=== PATIENT | female | born 1960 | race African-American/Black ===

== ENCOUNTER 2019-10-12 05:51 | Inpatient (IN) | payer OTHER ==
[~2019-10-12 05:51] MED LIST: BUPIVICAINE 0.25%/MORPH PF/KETOROLAC - 51ML DISP.SYRINGE IA ONE; CEFAZOLIN 2 GM in DEXTROSE 5%-WATER - 50 ML IVPB ONE; PANTOPRAZOLE 40 MG TABLET PO ONE; TRANEXAMIC ACID 1000 MG/10 ML VIAL IVPUSH ONE
[2019-10-12] MEDS ORDERED: MIDAZOLAM HCL 2 MG/2 ML SINGLE DOSE VIAL ONE ×4 (06:59→11:08)
[2019-10-12] MEDS: CELECOXIB 200 MG CAPSULE PO ONE ×2 (07:15→10:00)
[2019-10-12] MEDS ORDERED: ceFAZolin SODIUM 1 GM VIAL ONE ×4 (07:21→14:08)
[2019-10-12] MEDS ORDERED: TRANEXAMIC ACID 1000 MG/10 ML VIAL ONE ×3 (07:21→09:18)
[2019-10-12] MEDS ORDERED: VANCOMYCIN 1,000 MG VIAL (RESTRICTED TO ID ONLY) ONE (07:21)
[2019-10-12] MEDS ORDERED: LIDOCAINE HCL/PF 2% SDV 5ML VIAL ONE ×3 (07:34→12:49)
[2019-10-12 07:35] VITALS: BMI 32.1
[2019-10-12] MEDS ORDERED: SUCCINYLCHOLINE CHLORIDE 200 MG/10 ML SYRINGE ONE (07:35)
[2019-10-12] MEDS ORDERED: PROPOFOL 20 ML ONE ×5 (07:35→11:09)
[2019-10-12] MEDS ORDERED: EPHEDRINE SULFATE/0.9% NACL/PF 50 MG/10 ML SYRINGE NR ONE (07:35)
--- NOTE | 2019-10-12 07:47 | HP ---
Admitting History and Physical - Admission Chief Complaint: Right hip osteoarthritis x years History of Present Illness: 59 year old female presents today in regard to their right hip. Longstanding history of right hip osteoarthritis. Patient complains of pain, limited ROM, difficulty ambulating and difficulty completing activities of daily living. Patient has failed conservative treatment options including PO medications, injections, exercise programs and activity modification. Diagnostic testing reveals severe osteoarthritis of the right hip joint. At this point, patient would like to proceed with surgical intervention; a right total hip arthroplasty, MAKOplasty. 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 Monse Grossman-->toxic multi nodular goiter proven on uptake scan following sono Depression - Dr. Ahmadi - monthly follow up echo 02/2014 - grade II diastolic dysfunction GERD since 2014 elevated alk phos up to 360 since 2008 Biopsy 2010 mild acute lobular and portal inflammation, very minimal steatosis - liver biopsy 2010 reactive mild inflammation, nl iron studies, hep panel, ceruloplasm, a1AT, KANDIS, ASMA, FARIDA, AMA 2008 2018 - fatty liver JAMES- wears CPAP - Past Surgical History Additional Past Surgical History: right robotic partial nephrectomy 03/2016 left shoulder surgery 2015 TRINITY w/o BSO 2003 - fibroids knee surgery for patellar fracture 2001 Cholecystectomy 1999 Breast R fibroadenoma 1977 - Smoking History Smoking history: Never smoked - Alcohol/Substance Use Hx Alcohol Use: No Home Medications - Allergies Allergies/Adverse Reactions: Allergies Allergy/AdvReac Type Severity Reaction Status Date / Time piroxicam [From Feldene] Allergy Severe Vomiting Verified 10/12/19 07:27 oxycodone [From OxyContin] AdvReac Severe Vomiting Verified 10/12/19 07:27 - Home Medications Home Medications: Ambulatory Orders Aripiprazole [Abilify] 10 mg PO DAILY 02/08/14 Bupropion HCl [Wellbutrin -] 150 mg PO DAILY 02/08/14 Methimazole 5 mg PO DAILY 10/07/19 Review of Systems - Review of Systems Musculoskeletal: reports: Decreased ROM (right hip), Joint Pain (right hip) Physical Examination Vital Signs: Vital Signs Temperature 98.4 F 10/12/19 07:28 Pulse Rate 99 H 10/12/19 07:28 Respiratory Rate 16 10/12/19 07:28 Blood Pressure 162/85 10/12/19 07:28 O2 Sat by Pulse Oximetry (%) 97 10/12/19 07:28 Constitutional: Yes: Well Nourished, No Distress Eyes: Yes: Conjunctiva Clear HENT: Yes: Atraumatic Neck: Yes: Supple Cardiovascular: Yes: Regular Rate and Rhythm Respiratory: Yes: Regular Gastrointestinal: Yes: Soft ...Rectal Exam: Yes: Deferred Musculoskeletal: Yes: Joint Stiffness (right hip), Other (Limited ROM right hip) Assessment/Plan 59 year old female presents today in regard to their right hip. Longstanding history of right hip osteoarthritis. Patient complains of pain, limited ROM, difficulty ambulating and difficulty completing activities of daily living. Patient has failed conservative treatment options including PO medications, injections, exercise programs and activity modification. Diagnostic testing reveals severe osteoarthritis of the right hip joint. At this point, patient would like to proceed with surgical intervention; a right total hip arthroplasty, MAKOplasty. Pros, cons, risks, benefits & alternatives of a right total hip arthroplasty, MAKOplasty was discussed with the patient at length. Patient confirms his understanding and consents to proceed with a right total hip arthroplasty - MAKOplasty.
[2019-10-12] MEDS ORDERED: ceFAZolin SODIUM 1 GM VIAL IVPB ONE ×4 (09:46→14:56)
[2019-10-12] MEDS ORDERED: VANCOMYCIN 1,000 MG VIAL (RESTRICTED TO ID ONLY) IVPB ONE ×2 (09:47→14:56)
[2019-10-12] MEDS ORDERED: TRANEXAMIC ACID 1000 MG/10 ML VIAL IVPB ONE (09:47)
[2019-10-12] MEDS ORDERED: BUPIVICAINE 0.25%/MORPH PF/KETOROLAC - 51ML DISP.SYRINGE IA ONE (10:18)
[2019-10-12] MEDS ORDERED: DEXMEDETOMIDINE HCL 200 MCG/2 ML IVPB ONE (11:27)
[2019-10-12] MEDS ORDERED: KETAMINE HCL 500 MG/10 ML VIAL ONE (11:28)
[2019-10-12] MEDS ORDERED: ROCURONIUM BROMIDE 50 MG/5 ML SYRINGE ONE (12:16)
[2019-10-12] MEDS ORDERED: NEOSTIGMINE METHYLSULFATE 0.5 MG/ML - 10 ML MDV ONE (12:49)
[2019-10-12] MEDS ORDERED: SODIUM CHLORIDE 0.9% P/F 10 ML VIAL IJ ONE ×2 (12:49→13:51)
[2019-10-12] MEDS ORDERED: PHENYLEPHRINE HCL 10 MG/1 ML SINGLE DOSE VIAL ONE (13:50)
[2019-10-12] MEDS ORDERED: KETOROLAC TROMETHAMINE 30 MG/1 ML VIAL ONE (16:01)
[2019-10-12] MEDS ORDERED: traMADol HCL 50 MG TABLET ONE (16:01)
[2019-10-12] MEDS ORDERED: ONDANSETRON 4 MG/2 ML VIAL IVPUSH PRN (16:03)
[2019-10-12] MEDS ORDERED: PROMETHAZINE HCL 25 MG/1 ML VIAL IVPUSH PRN (16:03)
[2019-10-12] MEDS ORDERED: oxyCODONE HCL 5 MG TABLET PO PRN ×2 (16:03)
[2019-10-12] MEDS ORDERED: ACETAMINOPHEN 325 MG TABLET (FP) PO SCH (16:15)
[2019-10-12] MEDS: KETOROLAC TROMETHAMINE 30 MG/1 ML VIAL IVPUSH SCH ×2 (16:30→21:56)
[2019-10-12] MEDS ORDERED: ACETAMINOPHEN INJECTION 100 ML IVPB ONE (16:37)
--- NOTE | 2019-10-12 16:38 | OP ---
Operative Note - Note: Operative Date: 10/12/19 Pre-Operative Diagnosis: Right hip AVN / OA Operation: Right VICKIE CRYSTAL, ORIF periprosthetic femur fracture Post-Operative Diagnosis: Same as Pre-op Surgeon: Aron Queen Music Education Director: Tiffany Alford Anesthesia: General, Spinal Estimated Blood Loss (mls): 650
[2019-10-12] MEDS ORDERED: ACETAMINOPHEN WITH CODEINE 300MG/30MG TABLET PO PRN ×2 (16:39→16:42)
[2019-10-12] MEDS ORDERED: ACETAMINOPHEN 1000 MG/100 ML VIAL (NON FORMULARY) IVPB ONE (16:43)
[2019-10-12] MEDS ORDERED: MAG HYDROX/AL HYDROX/SIMETH 30 ML UNIT-DOSE CUP PO PRN (16:44)
[2019-10-12] MEDS ORDERED: MAGNESIUM HYDROX 2400MG/30ML ORAL SUSPENSION 30 ML CUP PO PRN (16:44)
[2019-10-12] MEDS ORDERED: LACTATED RINGERS SOLUTION 1,000 ML IV SCH (16:45)
[2019-10-12] MEDS: traMADol HCL 50 MG TABLET PO SCH ×2 (17:00→21:55)
[2019-10-12] MEDS: ONDANSETRON 4 MG/2 ML VIAL IVPUSH PRN (19:29)
--- NOTE | 2019-10-12 19:40 | SURG ---
Surgery Psychopaedic Nurse Note Psychopaedic Nurse: Tiffany Alford PA-C Date of Service: 10/12/19 Diagnosis: Right hip AVN / OA Procedure: Right VICKEI CRYSTAL, ORIF periprosthetic femur fracture I was present for the entirety of the operative procedure. For further detail, please refer to operative report. Visit type - Case Type Case Type: Scheduled - Emergency Emergency Visit: No - New patient This patient is new to me today: Yes Date on this admission: 10/12/19
[2019-10-12] MEDS ORDERED: SENNOSIDES/DOCUSATE COMBO (SENNA PLUS) TABLET (UD) PO SCH (22:00)
[2019-10-12] MEDS ORDERED: CELECOXIB 200 MG CAPSULE PO SCH (22:00)
[2019-10-12] MEDS ORDERED: GABAPENTIN 300 MG CAPSULE PO SCH (22:00)
[2019-10-12] MEDS ORDERED: ASCORBIC ACID 500 MG TABLET (FP) PO SCH (22:00)
[2019-10-12] MEDS ORDERED: CEFAZOLIN 2 GM/D5W 2 GM/50 ML ML IVPB SCH (23:00)
[2019-10-13] MEDS ORDERED: DEXAMETHASONE SOD PHOSPHATE 10 MG/1 ML VIAL IVPB ONE
[2019-10-13] MEDS: ONDANSETRON 4 MG/2 ML VIAL IVPUSH PRN (02:00)
[2019-10-13 02:10] VITALS: BP 95/48; PULSE 102; TEMP 98.3
--- NOTE | 2019-10-13 04:27 | ED.PROV ---
Physicial Exam I was called to the floor at 03:10 to evaluate this 59-year-old female. On my arrival in the patient's room patient was unresponsive. There was a nurse with the patient who was was in the process of obtaining her vitals. Patient blood pressure was 50 systolic on the 1 blood pressure we are able to get patient was agonal respirations and we were unable to obtain a pulse ox. I walked out to the nurses station to get the charge nurse to come into the room and when we got back into the room the patient was apneic and without a palpable pulse. We immediately initiated full ACLS. Compressions were begun and the patient was oxygenated with bag valve mask while I set up for intubation. Patient began to vomit and aspirate her stomach contents just prior to intubation. A MAC 4 blade was used and the cords were visualized. Post intubation there were bilateral breath sounds however we were suctioning gastric contents as well as mucus from the endotracheal tube. I quickly changed the endotracheal tube with a MAC 4 blade again visualizing the cords. There continued to be gastric contents but much less. Patient was given a total of 3 epi and 1 atropine with full chest compressions throughout. Patient remained asystolic on the monitor and and I pronounced the patient at 3:45 am. - Vital Signs Last Vital Signs Temp Pulse Resp BP Pulse Ox 98.3 F 102 H 18 95/48 L 98 10/13/19 02:09 10/13/19 02:09 10/13/19 02:09 10/13/19 02:09 10/13/19 02:09
[2019-10-13] MEDS ORDERED: FERROUS SO4 325 MG TABLET (FP) PO SCH (08:00)
[2019-10-13] MEDS ORDERED: ceFAZolin SODIUM 1 GM VIAL ONE (08:19)
[2019-10-13] MEDS ORDERED: APIXABAN 2.5 MG TABLET PO SCH (10:00)
[2019-10-13] MEDS ORDERED: MULTIVITAMINS (DAILY MVI) TABLET (FP) PO SCH (10:00)
[2019-10-13] MEDS ORDERED: METHIMAZOLE 5 MG TABLET (FP) PO SCH (10:00)
[2019-10-13] MEDS ORDERED: ARIPiprazole 10 MG TABLET PO SCH (10:00)
[2019-10-13] MEDS ORDERED: PANTOPRAZOLE 40 MG TABLET PO SCH (10:00)
--- NOTE | 2019-10-13 23:21 | PN ---
Progress Note (short form) - Note Progress Note: I was notified at 3:45am that pt was awake/alert and then suddenly coded and . I saw her last at 8:30pm and spoke with her in her room for ~15 minutes about her postop instructions before leaving the hospital. At that time she was awake, comfortable, and had no signs of distress. I spoke to her mother this morning and offered my condolences. She asked what happened and I explained that I did not know, because she was fine when I last saw her, but a sudden is most likely due to a cardiac event such as an NE, or a massive pulmonary embolus. I recommended that they insist on an autopsy (even though the medical writer refused the case) so that we can determine the exact cause of and she agreed.
--- NOTE | 2019-10-14 11:34 | OP ---
DATE OF OPERATION: 10/12/2019 PREOPERATIVE DIAGNOSIS: Right hip osteonecrosis and osteoarthritis. POSTOPERATIVE DIAGNOSIS: Right hip osteonecrosis and osteoarthritis. PROCEDURE: Right total hip replacement with MAKOplasty robotic navigation and open reduction internal fixation of intraoperative periprosthetic femur fracture. ATTENDING: Alex East MD TESTING LEAD: PAOLA Wright ANESTHESIA: General. ESTIMATED BLOOD LOSS: 650 mL COMPLICATIONS: Intraoperative proximal femur fracture occurred while broaching for the femoral component of the hip replacement. DISPOSITION: The patient was transferred to the PACU in stable condition. IMPLANTS USED: [place] Trident II 48-mm acetabular component with 20-, 25- and 30-mm acetabular screws; Alayna Accolade II size 6 femoral component with 127-degree neck angle; Alayna MDM bipolar head ball and liner; [place] Niya-Miles cerclage cables; DePuy 12-hole locking plate. INDICATIONS: This is a 59-year-old female who presented to the office complaining of right hip pain. She was seen and examined by Dr. 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 Further workup by MRI revealed osteonecrotic lesions in her contralateral femur as well as in the pelvis. The patient was referred to a physical science technician for a full workup for hypercoagulable states and none were found. She was treated conservatively for her hip pain, but it worsened to the point where she had constant severe pain and ambulatory dysfunction. We discussed total hip replacement, but the surgery was delayed due to the COVID pandemic. Once elective surgeries resumed, she wished to proceed with surgery. The risks, benefits and alternatives to the procedure were explained to the patient in great detail and she elected to proceed with the MAKOplasty total hip replacement. DESCRIPTION OF PROCEDURE: On the day of surgery the patient was taken to the operating room and placed on the OR table. Anesthesia was administered by the anesthesiologist. The patient was then positioned in the lateral decubitus position on the table and all bony prominences were padded. An axillary roll was placed. The right lower extremity was then prepped and draped in the usual sterile fashion and intravenous antibiotics were given for infection prophylaxis. A surgical timeout was then performed with the team and the patient's identity, procedure, side, availability of implants and the administration of antibiotics were confirmed. Three small stab incisions were then made along the anterosuperior aspect of the iliac crest. Three self-drilling Steinmann pins were then placed into the crest and the [employer] pelvic reflector array was attached. Next, an approximately 15 cm longitudinal incision was made through the skin centered on the greater trochanter of the hip. This dissection was carried down through the subcutaneous tissues to the deep fascia. This fascia was then incised and the Cobra was placed around the inferior femoral neck. Electrocautery was used to reflect the anterior 40% of the gluteus medius and minimus starting at the musculotendinous junction and leaving a cuff for closure. This was reflected to reveal the capsule of the hip joint. An anterior capsulectomy was performed and the femoral head and neck were visualized. Grade 4 changes were noted diffusely throughout the joint. Reference points on the limb were then entered into the robotic device and the limb length deficiency offset and femoral neck resection level were then calculated by the software. The hip was then dislocated with traction and external rotation, and an oscillating saw was used to make the femoral neck cut at the level previously templated and the femoral neck and head were removed. Attention was then turned to the acetabulum. Retractors were placed around the acetabulum and the labrum was removed. An acetabular checkpoint pin was placed and the [employer] software was used to register the contours of the acetabulum. The acetabulum was then reamed to the preoperatively templated size using reamers attached to the [employer] robotic arm. A 48-mm acetabular component was then impacted in place and had solid fixation as well as our preset inclination and version. Acetabular screws were placed for additional provisional fixation strength. An MDM liner was then placed in the cup. Attention was then turned back to the femur which was externally rotated for improved visualization. The femoral neck elevator was used to present the femoral neck cut. A box osteotome was used to enter the femoral canal and the canal finder was used to go down the femoral shaft. The Alayna Accolade II broaches were then used sequentially until we reached the preoperatively templated size of 6 which was found to not have sufficient fixation and sunk deep into the shaft. We then used successively larger broaches number 7, 8 and 9, and these were also found to have imperfect fixation and had sunken below the level of the femoral neck cut. At this point it was suspected that there was either perforation of the femoral shaft or an intraoperative split of the femur, and dissection of the vastus lateralis off the lateral aspect of the femoral shaft and palpation revealed that there was a longitudinal split in the femur and that this had gapped open preventing the broaches from achieving fixation. At this point we elected to perform fixation of the fracture prior to continuing with the hip replacement. The incision was extended longitudinally until it was approximately at the level of the distal aspect of the fracture. The broach was removed and further dissection of the vastus lateralis off of the lateral cortex of the femur revealed that there was a longitudinal split extending from just distal to the greater trochanter and extending to approximately midfemur. The trochanter and femoral neck cut did not appear to be involved and the split was actually found to be a small butterfly fragment which was rectangular in length and was reducible. In addition, this fragment was found to be very thin and it appeared that the shoulder of the broach had caused a fracture distal to the flare of the trochanter and punched out this butterfly fragment, which then allowed the femur to gap open when broached and thus prevented fixation of the broach. Once the entire area was directly visualized, we irrigated with pulsatile lavage to clean the fracture edges. The fracture fragment was reduced and held in place with a fracture reduction clamp. This was then cerclaged in place with a No. 2 FiberWire suture so that the clamp could be removed so that it would not interfere with plate placement. A 12-hole DePuy locking plate was then placed on the lateral cortex of the femur and found to extend sufficiently distal to the inferiormost aspect of the fracture. A malleable plate shaping guide was then placed on the lateral aspect of the femur and shaped to fit the flare of the trochanter. Plate benders were then used to slightly bend the proximal aspect of the plate to match the shape of the malleable plate bending guide and this allowed the plate to sit flush on the lateral aspect of the femur over the butterfly fragment of the fracture and also flare proximally to match the [place] flare of the greater trochanter. Once this was completed, Alayna Niya-Jose Cruz cables were used to cerclage the plate over the lateral cortex of the femur, fully covering the reduced butterfly fragment which was previously cerclaged in place with FiberWire. Multiple cerclage cables were placed proximally and distally as well as several cortical widths distal to the fracture site. Once the plate had been securely affixed to the femur, attention was turned back to broaching. We again broached with a size 6 Accolade II broach which was the preoperatively templated size in the VICKIE software and this was found to have perfect press fit and was optimally positioned in relation to our neck cut. From here several different offset head and neck configurations were tested until excellent stability and leg length were obtained. These measures were quantified using the VICKIE software as well. All trial components were then removed. The femur was copiously irrigated and the final components were placed. Leg length and stability were checked again and found to be excellent. Irrigation was performed again. A 3-minute dilute Betadine soak was then performed and this was followed by additional irrigation using a pulsatile lavage with saline containing 1 g of Ancef per liter of saline. Overall we used 6 L of this preparation. Wound closure was started by repairing the vastus lateralis with No. 0 V-Loc 180 barbed suture. Next, the abductor muscles were reattached to the greater trochanter with a No. 2 FiberWire stitch in a [place] configuration. This repair was then reinforced with No. 0 V-Loc 180 barbed suture. Next, No. 1 Vicryl and No. 0 V-Loc 180 barbed suture were used to close the IT band and fascia. The deep subcutaneous tissue was closed with No. 1 Vicryl sutures in layers. The superficial subcutaneous tissues were closed with a 2-0 V-Loc 90 running barbed suture. The skin was closed using both 3-0 V-Loc 90 suture in a running subcuticular fashion and Dermabond skin adhesive. The VICKIE reflector array and pins were removed from the iliac crest and the stab incision sites were irrigated and closed with 4-0 Vicryl sutures, a 3-0 V-Loc 90 running barbed suture and Dermabond skin adhesive. Once this was completed, sterile Aquacel dressings were applied. The patient was then awakened and taken to the PACU in stable condition. ALEX EAST M.D. EMELY/[id number]
--- NOTE | 2019-10-14 16:33 | PATH ---
Surgical Pathology Report Patient Name: BHAVIN CORTEZ Med. Rec. #: [id number] /Age/Gender: 1960 (Age: 59) / F Account: [id number] Location: [facility] MED-SURG Taken: 10/12/2019 Received: 10/12/2019 Reported: 10/14/2019 Physicians: Aron Queen M.D. Specimen(s) Received RIGHT FEMORAL HEAD Clinical History Right hip osteoarthritis Final Diagnosis RIGHT FEMORAL HEAD, RESECTION: DEGENERATIVE JOINT DISEASE, RIGHT HIP. Electronically Signed Marleen Guillermo M.D. Gross Description Received in formalin, labeled "right femoral head," is a 3.7 x 3.7 x 3.6 cm. femoral head with a 0.6 cm in length portion of femoral neck attached. The margin of resection is smooth. No areas of eburnation are identified. The articular surface is isaacs-yellow and focally granular. The underlying trabecular bone is yellow and hard. A business services sales representative section is submitted in one cassette, following decalcification. /10/13/2019 [facility]/10/13/2019
== END 2019-10-13 03:40 | disposition expired | DRG 470 ==
LOC: FM/S 05:51
PROVIDERS: ADMIT Student in an Organized Health Care Education/Training Program; ATTEND Student in an Organized Health Care Education/Training Program
PROC: 0QS604Z Reposition Right Upper Femur with Internal Fixation Device, Open Approach (ICD-10-PCS; 2019-10-12)
PROC: 0SR90JA Replacement of Right Hip Joint with Synthetic Substitute, Uncemented, Open Approach (ICD-10-PCS; principal; 2019-10-12 09:28)
PROC: 5A12012 Performance of Cardiac Output, Single, Manual (ICD-10-PCS; 2019-10-13)
PROC: 0BH17EZ Insertion of Endotracheal Airway into Trachea, Via Natural or Artificial Opening (ICD-10-PCS; 2019-10-13)
PROC: 5A1935Z Respiratory Ventilation, Less than 24 Consecutive Hours (ICD-10-PCS; 2019-10-13)
DX: M87.051 Idiopathic aseptic necrosis of right femur (principal); M96.661 Fracture of femur following insertion of orthopedic implant, joint prosthesis, or bone plate, right leg; I97.121 Postprocedural cardiac arrest following other surgery; T17.818A Gastric contents in other parts of respiratory tract causing other injury, initial encounter; E06.3 Autoimmune thyroiditis; G47.33 Obstructive sleep apnea (adult) (pediatric); K21.9 Gastro-esophageal reflux disease without esophagitis; F32.9 Major depressive disorder, single episode, unspecified; Y83.8 Other surgical procedures as the cause of abnormal reaction of the patient, or of later complication, without mention of misadventure at the time of the procedure; R57.8 Other shock; Z90.5 Acquired absence of kidney
CPT/HCPCS: 73502-TC-RT-FY; 88305-TC; 88311-TC; 94760; J0131; J1100